=== PATIENT | female | born 1980 | race Caucasian/White ===

== ENCOUNTER 2020-10-03 00:48 | Emergency (ER) | payer OTHER ==
[2020-10-03 03:04] LABS: HEMOGLOBIN 14.4 gm/dl (12.3-15.3); RED BLOOD COUNT 4.73 M/UL (4.00-5.10); WHITE BLOOD COUNT 9.3 K/UL (4.5-11.0)
[2020-10-03 03:32] LABS: BUN/CREATININE RATIO 13 (0-10)
== END 2020-10-03 06:42 | disposition home or self-care (01) ==
LOC: EDSEX 00:48 → ER1 00:48
PROVIDERS: Emergency Medicine
DX: R07.9 Chest pain, unspecified (principal); F17.200 Nicotine dependence, unspecified, uncomplicated
CPT/HCPCS: 71045; 80053; 82550; 82553; 83690; 83735; 83874; 83880; 84484; 84703; 85025; 85379; 93005; 96374; 99285